=== PATIENT | male | born 1985 | race Two or more races ===

== ENCOUNTER 2018-11-06 22:54 | Emergency (ER) | payer MEDICAID ==
[~2018-11-06] VITALS: Ht 210.8 cm; Wt 107.0 kg
[2018-11-07] MEDS ORDERED: ACETAMINOPHEN 325MG TABLET PO ONE (04:00)
[2018-11-07] MEDS ORDERED: KETOROLAC 30MG/ML VIAL IV ONE (05:15)
[2018-11-07 06:18] VITALS: BP 135/88
== END 2018-11-07 06:23 | disposition home or self-care (01) ==
LOC: ER 22:54
DX: S00.03XA Contusion of scalp, initial encounter (principal); Y04.2XXA Assault by strike against or bumped into by another person, initial encounter; Y93.89 Activity, other specified; Y92.29 Other specified public building as the place of occurrence of the external cause; R03.0 Elevated blood-pressure reading, without diagnosis of hypertension; F12.90 Cannabis use, unspecified, uncomplicated
CPT/HCPCS: 70450; 96374; 99284; J1885; Z7610

== ENCOUNTER 2023-01-04 10:44 | Emergency (ER) | payer MEDICAID ==
[~2023-01-04] VITALS: Ht 180.3 cm; Wt 100.0 kg
[2023-01-04 10:54] VITALS: BP 169/124
[2023-01-04] MEDS ORDERED: TOPUD MT (12:58)
[2023-01-04] MEDS ORDERED: AM250 MT (12:58)
[2023-01-04] MEDS ORDERED: IBUP-1525 MT (12:58)
== END 2023-01-04 13:48 | disposition home or self-care (01) ==
LOC: ER 10:44
DX: J03.90 Acute tonsillitis, unspecified (principal); J45.909 Unspecified asthma, uncomplicated; F12.10 Cannabis abuse, uncomplicated
CPT/HCPCS: 99281; 99283

== ENCOUNTER 2023-12-27 20:50 | Emergency (ER) | payer MEDICAID ==
[~2023-12-27] VITALS: Ht 177.8 cm; Wt 104.0 kg
[~2023-12-27 20:50] MED LIST: AM250 MT; IBUP-1525 MT; TOPUD MT
[2023-12-28 02:22] VITALS: TEMP 98.2
[2023-12-28] MEDS: METHYLPREDNISOLONE SOD SUCC 125MG/2ML (ACT-O-VIAL) IV STA (04:11)
[2023-12-28 04:13] LABS: BASOPHILS % 1.5 % (0.0-2.0); EOSINOPHILS % 8.5 % (0.0-5.0); HEMATOCRIT. 44.6 % (42.0-52.0); LYMPHOCYTES % 50.5 % (20.0-50.0); MEAN CORPUSCULAR HEMOGLOBIN 30.2 pg (28.0-32.0); MEAN CORPUSCULAR HGB CONC 33.7 g/dL (31.0-37.0); MEAN CORPUSCULAR VOLUME 89.8 fL (80.0-94.0); MEAN PLATELET VOLUME 6.9 fl (7.4-10.4); MONOCYTES % 10.1 % (2.0-8.0); NEUTROPHILS % 29.4 % (40.0-76.0); PLATELET 262 x1000/uL (130-400); RED BLOOD CELL COUNT 4.97 mill/uL (4.7-6.1); WHITE BLOOD COUNT 5.9 x1000/uL (4.5-11.0)
[2023-12-28 04:20] VITALS: PULSE 69; RESP 18; O2SAT 98
[2023-12-28 04:26] LABS: ALANINE AMINOTRANSFERASE 60 IU/L (10-49); ALBUMIN 4.7 g/dL (3.2-4.8); ASPARTATE AMINOTRANSFERASE 37 IU/L (<34); BILIRUBIN TOTAL 0.6 mg/dL (0.1-1.0); CALCIUM 9.1 mg/dL (8.7-10.4); CARBON DIOXIDE 26 mEq/L (21-32); CHLORIDE 108 mEq/L (98-107); GLUCOSE 103 mg/dL (70-105); POTASSIUM 4.4 mEq/L (3.5-5.1); PROTEIN TOTAL 7.9 g/dL (6.0-8.3); SODIUM 140 mEq/L (136-145); TROPONIN I HIGH SENSITIVITY 7 ng/L (3.0-53); UREA NITROGEN BLOOD 9 mg/dL (9-23)
[2023-12-28] MEDS: IPRATROPIUM BROMIDE (0.02%) 0.5MG/2.5ML NEB HHN STA (04:26)
[2023-12-28] MEDS: ALBUTEROL (0.083%) 2.5MG/3ML NEB HHN SCH (04:26)
[2023-12-28] MEDS ORDERED: P50 MT (05:51)
[2023-12-28] MEDS ORDERED: ALBU6.7H15 INH (05:51)
[2023-12-28 06:16] VITALS: BP 147/97; PULSE 87; RESP 20
== END 2023-12-28 06:37 | disposition home or self-care (01) ==
LOC: ER 20:50
DX: J45.901 Unspecified asthma with (acute) exacerbation (principal); I10 Essential (primary) hypertension; F12.10 Cannabis abuse, uncomplicated
CPT/HCPCS: 99285; 80053; 85025; 84484; 36415; 71045; 93005; 94644; 96374; J2930; Z7610 ×3; 94640